=== PATIENT | female | born 1935 | race Caucasian/White ===

== ENCOUNTER 2020-11-23 15:52 | Emergency (ER) | payer MEDICARE ==
[~2020-11-23] VITALS: Ht 160 cm; Wt 96.2 kg
[~2020-11-23 15:52] MED LIST: ACET500 PO; ALEN70 PO; ATOR20 PO; CIPR500 PO; DULO30 PO; DULO60; DULO60 PO; EZET10; EZET10 PO; HYDACE5 PO; HYDACE7.5; HYDCHL25; LANS30EC; LANS30EC PO; LEVSOD25; LEVSOD50 PO; METR500 PO; Motion Sickness25 M1 PO; OMEP20ER PO; PROM25 PO; QUIN10; QUIN10 PO; ROSU10TA; ROSU10TA PO; WARF2.5 PO; Zofran Odt4 MG PO
[2020-11-23 16:48] LABS: BASOPHILS ABSOLUTE AUTO 0.04 K/mm3 (0.00-0.23); BASOPHILS PERCENT AUTO 1 % (0-2); EOSINOPHILS PERCENT AUTO 3 % (0-6); Hematocrit 46.5 % (33.0-51.0); Hemoglobin 14.5 g/dL (11.5-16.0); IMMATURE GRAN ABSOLUTE AUTO 0.03 K/mm3 (0.00-0.10); IMMATURE GRAN PERCENT AUTO 0 % (0-1); LYMPHOCYTES ABSOLUTE AUTO 1.83 K/mm3 (0.84-5.20); LYMPHOCYTES PERCENT AUTO 23 % (21-46); MONOCYTES ABSOLUTE AUTO 0.53 K/mm3 (0.16-1.47); MONOCYTES PERCENT AUTO 7 % (4-13); Mean Corpuscular HGB 28.9 pg (26.0-34.0); Mean Corpuscular HGB Conc 31.2 g/dL (31.5-36.5); Mean Corpuscular Volume 93 fL (80-100); Mean Platelet Volume 9.9 fL (9.1-12.4); NEUTROPHILS ABSOLUTE AUTO 5.21 K/mm3 (1.96-9.15); NEUTROPHILS PERCENT AUTO 66 % (41-73); NRBC ABSOLUTE 0.04 K/mm3 (0.00-0.02); NRBC Auto 0.5 /100 WBC (0.0-0.2); Platelet Count 235 K/mm3 (150-400); RDW Coefficient Variation 13.3 % (11.7-14.2); RDW Standard Deviation 45.2 fL (35.1-46.3); Red Blood Cell Count 5.02 M/mm3 (3.80-5.20); White Blood Cell Count 7.84 K/mm3 (4.00-11.30)
[2020-11-23 17:08] LABS: Alanine Aminotransfer (ALT/SGP 23 U/L (12-78); Albumin, Blood 3.5 g/dL (3.4-5.0); Alk Phos 125 U/L (50-136); Anion Gap 5 mmol/L (6-16); Aspartate Aminotrans (AST/SGOT 21 U/L (12-37); Bilirubin, Total 0.7 mg/dL (0.1-1.0); Blood Urea Nitrogen 15 mg/dL (8-24); Bun/Creatinine Ratio 16.9 (12.0-20.0); CO2, Blood 29 mmol/L (21-32); Calcium, Blood 9.2 mg/dL (8.5-10.1); Chloride, Blood 105 mmol/L (98-108); Creatinine, Blood 0.89 mg/dL (0.40-1.00); Globulin, Blood 3.5 g/dL (2.2-4.0); Glomerular Filtration Rate >60 (60-); Glucose, Blood 120 mg/dL (70-99); Potassium, Blood 4.2 mmol/L (3.5-5.5); Sodium, Blood 139 mmol/L (136-145)
[2020-11-23] MEDS ORDERED: ATOR40TA PO (18:19)
[2020-11-23] MEDS ORDERED: Inderal60 MG PO (18:20)
[2020-11-23] MEDS ORDERED: ASPI81CH PO (18:20)
[2020-11-23 19:39] LABS: Magnesium, Blood 2.3 mg/dL (1.6-2.4); Troponin I <0.015 ng/mL (0.000-0.040)
[2020-11-23 19:47] LABS: Source, Urine Clean Catch
[2020-11-23 19:55] LABS: Appearance, Urine Hazy (Clear); Bilirubin, Urine Neg (Neg); Blood, Urine 1+ (Neg); Color, Urine Yellow (P-Yellow); Glucose Qualitative, Urine Neg (Neg); Ketones, Urine Neg (Neg); Leukocyte Esterase, Urine Neg (Neg); Nitrite, Urine Neg (Neg); Protein, Urine Neg (Neg); Specific Gravity, Urine 1.015 (1.003-1.022); Urobilinogen, Urine NORM (Normal)
[2020-11-23 20:10] LABS: Bacteria Many /hpf; Red Blood Cells, Urine 0-2 /hpf (0-2); Squamous Epithelial Cells Mod /hpf (Few); White Blood Cells, Urine 0-2 /hpf (0-5)
[2020-11-24] MEDS ORDERED: PROM25 PO (00:17)
== END 2020-11-24 00:46 | disposition home or self-care (01) ==
LOC: ER 15:52
PROVIDERS: Emergency Medicine; Physician Assistant
DX: K42.9 Umbilical hernia without obstruction or gangrene (principal); E11.9 Type 2 diabetes mellitus without complications; E03.9 Hypothyroidism, unspecified; Z79.82 Long term (current) use of aspirin; Z79.899 Other long term (current) drug therapy; Z87.891 Personal history of nicotine dependence
CPT/HCPCS: 74018; 74177; 80053; 81001; 83690; 83735; 84484; 85025; 87086; 99284-25; Q9967

== ENCOUNTER → 2020-12-02 | Outpatient (CLI) | payer MEDICARE ==
[~2020-12-02] MED LIST changes: +ASPI81CH PO; +ATOR40TA PO; +Inderal60 MG PO
[2020-12-02 15:13] LABS: Bacteria Mod /hpf; Red Blood Cells, Urine 0-2 /hpf (0-2); Squamous Epithelial Cells Mod /hpf (Few)
== END | disposition home or self-care (01) ==
LOC: LAB EV 14:57 → LAB SHORT 14:57
PROVIDERS: Physician Assistant
DX: R31.9 Hematuria, unspecified (principal)
CPT/HCPCS: 81015

== ENCOUNTER → 2022-01-30 | Outpatient (CLI) | payer MEDICARE ==
[2022-01-30 17:49] LABS: Microalb/Creat Ratio UR, Rand 8.654 mg/g (0.000-30.000); Microalbumin, Random Urine 9.26 mg/L (0.000-20.000)
== END | disposition home or self-care (01) ==
LOC: LAB 15:14 → LAB SHORT 15:14
PROVIDERS: Physician Assistant
DX: N18.9 Chronic kidney disease, unspecified (principal)
CPT/HCPCS: 82043; 82570

== ENCOUNTER → 2022-08-21 | Outpatient (CLI) | payer MEDICARE ==
[2022-08-21 13:47] LABS: Source, Urine Voided
[2022-08-21 15:43] LABS: Appearance, Urine Turbid (Clear); Bilirubin, Urine Neg (Neg); Blood, Urine Neg (Neg); Color, Urine Yellow (P-Yellow); Glucose Qualitative, Urine Neg (Neg); Ketones, Urine Neg (Neg); Leukocyte Esterase, Urine Neg (Neg); Nitrite, Urine Neg (Neg); Protein, Urine Neg (Neg); Specific Gravity, Urine 1.025 (1.003-1.022); Urobilinogen, Urine NORM (Normal)
[2022-08-21 16:00] LABS: Amorphous Heavy (0-Heavy); Bacteria Few /hpf; Red Blood Cells, Urine 0-2 /hpf (0-2); Squamous Epithelial Cells Few /hpf (Few); White Blood Cells, Urine 0-2 /hpf (0-5)
== END | disposition home or self-care (01) ==
LOC: LAB 13:00 → LAB SHORT 13:00
PROVIDERS: Physician Assistant
DX: R44.3 Hallucinations, unspecified (principal)
CPT/HCPCS: 81001

== ENCOUNTER → 2022-08-27 | Outpatient (CLI) | payer MEDICARE ==
[2022-08-28 15:29] LABS: Source, Urine Voided
[2022-08-28 17:40] LABS: Appearance, Urine Clear (Clear); Bilirubin, Urine Neg (Neg); Blood, Urine Neg (Neg); Color, Urine Yellow (P-Yellow); Glucose Qualitative, Urine Neg (Neg); Ketones, Urine Neg (Neg); Leukocyte Esterase, Urine Neg (Neg); Nitrite, Urine Neg (Neg); Protein, Urine Neg (Neg); Specific Gravity, Urine 1.015 (1.003-1.022); Urobilinogen, Urine NORM (Normal); pH, Urine 6.5 (5.0-8.0)
== END ==
LOC: LAB SHORT 10:45
PROVIDERS: Physician Assistant
DX: R44.3 Hallucinations, unspecified (principal)
CPT/HCPCS: 81003

== ENCOUNTER 2022-11-23 10:02 | Inpatient (IN) | payer MEDICARE ==
[~2022-11-23] VITALS: Ht 160 cm; Wt 87.7 kg
[~2022-11-23 10:02] MED LIST changes: +LISI20 PO; +METO50 PO; +MIRT15 PO; +Prinivil10 MG PO
[2022-11-23] MEDS ORDERED: METO25ER PO (10:46)
[2022-11-23 11:00] LABS: BASOPHILS ABSOLUTE AUTO 0.05 K/mm3 (0.00-0.23); BASOPHILS PERCENT AUTO 1 % (0-2); EOSINOPHILS ABSOLUTE AUTO 0.19 K/mm3 (0.00-0.68); EOSINOPHILS PERCENT AUTO 2 % (0-6); Hematocrit 44.1 % (33.0-51.0); Hemoglobin 14.2 g/dL (11.5-16.0); IMMATURE GRAN ABSOLUTE AUTO 0.06 K/mm3 (0.00-0.10); IMMATURE GRAN PERCENT AUTO 1 % (0-1); LYMPHOCYTES ABSOLUTE AUTO 2.04 K/mm3 (0.84-5.20); LYMPHOCYTES PERCENT AUTO 22 % (21-46); MONOCYTES ABSOLUTE AUTO 0.61 K/mm3 (0.16-1.47); MONOCYTES PERCENT AUTO 7 % (4-13); Mean Corpuscular HGB 29.8 pg (26.0-34.0); Mean Corpuscular HGB Conc 32.2 g/dL (31.5-36.5); Mean Corpuscular Volume 93 fL (80-100); Mean Platelet Volume 9.7 fL (9.1-12.4); NEUTROPHILS ABSOLUTE AUTO 6.22 K/mm3 (1.96-9.15); NEUTROPHILS PERCENT AUTO 68 % (41-73); Platelet Count 281 K/mm3 (150-400); RDW Coefficient Variation 14.4 % (11.7-14.2); RDW Standard Deviation 49.3 fL (35.1-46.3); Red Blood Cell Count 4.76 M/mm3 (3.80-5.20); White Blood Cell Count 9.17 K/mm3 (4.00-11.30)
[2022-11-23 11:19] LABS: Albumin, Blood 3.3 g/dL (3.4-5.0); Bilirubin, Total 0.9 mg/dL (0.1-1.0); Bun/Creatinine Ratio 22.9 (12.0-20.0); Calcium, Blood 9.2 mg/dL (8.5-10.1); Creatinine, Blood 0.96 mg/dL (0.40-1.00); Globulin, Blood 3.4 g/dL (2.2-4.0); Magnesium, Blood 2.2 mg/dL (1.6-2.4); Potassium, Blood 4.5 mmol/L (3.5-5.5); Total Protein, Blood 6.7 g/dL (6.4-8.2)
[2022-11-23] MEDS ORDERED: EUTHYROX50 MC1 PO (13:28)
[2022-11-23] MEDS ORDERED: DULO60 PO (13:57)
[2022-11-23 15:28] VITALS: BP 154/89
[2022-11-23 20:57] VITALS: BP 100/65
[2022-11-23 22:00] VITALS: BP 108/62
[2022-11-23 23:00] VITALS: BP 121/63
[2022-11-24] VITALS (15 sets, daily range): BP systolic 104–140; BP diastolic 59–121
[2022-11-24 04:04] LABS: BASOPHILS ABSOLUTE AUTO 0.05 K/mm3 (0.00-0.23); BASOPHILS PERCENT AUTO 1 % (0-2); EOSINOPHILS ABSOLUTE AUTO 0.22 K/mm3 (0.00-0.68); EOSINOPHILS PERCENT AUTO 3 % (0-6); Hematocrit 42.7 % (33.0-51.0); Hemoglobin 13.9 g/dL (11.5-16.0); IMMATURE GRAN ABSOLUTE AUTO 0.04 K/mm3 (0.00-0.10); IMMATURE GRAN PERCENT AUTO 1 % (0-1); LYMPHOCYTES ABSOLUTE AUTO 2.25 K/mm3 (0.84-5.20); LYMPHOCYTES PERCENT AUTO 30 % (21-46); MONOCYTES ABSOLUTE AUTO 0.52 K/mm3 (0.16-1.47); MONOCYTES PERCENT AUTO 7 % (4-13); Mean Corpuscular HGB 29.8 pg (26.0-34.0); Mean Corpuscular HGB Conc 32.6 g/dL (31.5-36.5); Mean Corpuscular Volume 91 fL (80-100); Mean Platelet Volume 9.7 fL (9.1-12.4); NEUTROPHILS ABSOLUTE AUTO 4.42 K/mm3 (1.96-9.15); NEUTROPHILS PERCENT AUTO 59 % (41-73); Platelet Count 266 K/mm3 (150-400); RDW Coefficient Variation 14.1 % (11.7-14.2); RDW Standard Deviation 46.9 fL (35.1-46.3); Red Blood Cell Count 4.67 M/mm3 (3.80-5.20)
[2022-11-24 04:20] LABS: Albumin/Globulin Ratio 0.9 (0.8-1.8); Bilirubin, Total 0.8 mg/dL (0.1-1.0); Bun/Creatinine Ratio 24.1 (12.0-20.0); Calcium, Blood 8.6 mg/dL (8.5-10.1); Creatinine, Blood 0.95 mg/dL (0.40-1.00); Globulin, Blood 3.2 g/dL (2.2-4.0); Magnesium, Blood 2.2 mg/dL (1.6-2.4); Potassium, Blood 4.3 mmol/L (3.5-5.5); Total Protein, Blood 6.2 g/dL (6.4-8.2)
--- NOTE | 2022-11-24 06:11 | NUR ---
BOXING AND PRESSING SUPERVISOR SUMMARY ASSUMED CARE OF THE PT AT 1900. SHE IS ALERT AND ORIENTED X4, COOPERATIVE. PT FOLLOWS DIRECTIONS. PT HAS BEEN HAVING PAUSES RECENTLY THAT SHE IS SYMPTOMATIC FOR. SHE HAD A 7 SECOND PAUSE THIS SHIFT. ZOLL IN THE ROOM AND ATTACHED TO PT. PT HR WAS MAINTAINING IN THE 40S AT THE START OF THE SHIFT BUT HAS IMPROVED TO THE 70S AND 80S. DR FARLEY SAW THE PT THIS SHIFT AND PLAN FOR PACEMAKER THIS AM. PT SLEEPING ON CPAP AND SATTING >92%. PT INCONTINENT AT NIGHT. Q2 TURNS BUT PT REFUSES WHEN SLEEPING.
--- NOTE | 2022-11-24 06:40 | NUR ---
SPOKE WITH PT'S DAUGHTER THIS AM TO INFORM HER OF THE PT'S PLAN FOR PACEMAKER.
--- NOTE | 2022-11-24 08:59 | NUR ---
ASSUMED CARE OF PT AT 0715 BEDSIDE REPORT RECEIVED FROM RAE CALIX. PT IS AWAKE, A/O. HAS SLEPT WELL, RECEIVED CHLORHEXADINE PREP TO NECK AND CHEST. PLAN IS [facility] THIS AM AT [address] FARLEY. FAMILY TO BEDSIDE THIS AM, PT AND FAMILY UPDATED ON POC AND EXPECTATIONS POST PROCEDURE. ALL QUESTIONS ANSWERED. PIV X1 SL, FLUSHES WELL. HAS ATB ORDERED OC TO OR, PER DOUGHNUT ICER MACHINE, THEY WILL ADMINISTER IN PREOP. RN TO CONTINUE TO MONITOR.
--- NOTE | 2022-11-24 09:07 | NUR ---
PT TO OR AT 08 FOR PLANNED PACEMAKER PLACEMENT
--- NOTE | 2022-11-24 17:33 | NUR ---
RETURNED FROM PUMP HOUSE TECHNICIAN AT 1130 TOLERATED PACER PLACEMENT WELL. DENIES PAIN. SLING PLACED TO LEFT ARM. EDUCATION DONE WITH PT AND FAMILY ON RESTRICTIONS WITH LEFT ARM MOVEMENT. PT OOB TO CHAIR. HR 90'S AFIB UPON ARRIVAL FROM PROCEDURE, TRANSITIONED TO 100% V PACED. BP STABLE. ON ROOM AIR. TYLENOL GIVEN FOR PAIN IN THE [place] AREA DUE TO A FALL. BRUISING PRESENT BUT NO SKIN BREAKDOWN NOTED. PT ASSISTED WITH TURNS/WEIGHT SHIFT WHILE IN BED, HELPED OOB TO CHAIR, TOLERATED WELL. FAMILY AT BEDSIDE THROUGHOUT THE DAY. ALL UPDATED ON CURRENT STATUS AND POC. RN TO CONTINUE TO MONITOR
[2022-11-25 04:03] LABS: Bun/Creatinine Ratio 27.8 (12.0-20.0); Calcium, Blood 8.6 mg/dL (8.5-10.1); Creatinine, Blood 0.94 mg/dL (0.40-1.00); Potassium, Blood 4.3 mmol/L (3.5-5.5)
--- NOTE | 2022-11-25 07:21 | NUR ---
BUSINESS OFFICE ASSISTANT SUMMARY ASSUMED CARE OF THE PT AT 1900. SHE IS ALERT AND ORIENTED X4, COOPERATIVE. PT TOOK HER MEDICATIONS AND SLEPT THROUGHOUT THE SHIFT. SHE WAS GIVEN 1 NORCO FOR HIP PAIN WITH IMPROVEMENT. VSS. PT WAS PACED AT THE START OF THE SHIFT BUT WAS NOT PACED LATER DUE TO RATE REMAINING IN THE 70S WITHOUT PAUSES. PT SLEPT ON CPAP. BP STABLE. PACEMAKER SITE C/D/I. LEFT ARM IN SLING.
[2022-11-25 07:53] VITALS: BP 147/94
--- NOTE | 2022-11-25 08:24 | NUR ---
pt update pt up in chair at start of shift, a&o, vss. pacer site c/d/i, no bruising, skin blanched around site. arm sling in place. pt denies pain. Daughter in room. Pt currently down in imaging for chest xray, 2 person assist w/ gb and fww from chair to imaging cart d/t weakness.
[2022-11-25 11:36] VITALS: BP 147/83
--- NOTE | 2022-11-25 12:45 | NUR ---
DISCHARGE PT A&OX4, VSS. DISCHARGE ORDERS REVIEWED W/ PT AND PT'S DAUGHTER. POST PACER CARE REVIEWED WELL. BOTH VERBALIZE UNDERSTANDING. PT TO SCHEDULE FOLLOWUP APPTS AFTER HOLIDAY WEEKEND. MEDICATION FAXED TO [facility]. PT IV'S REMOVED. DRESSED IN HOME CLOTHES AND WHEELED TO DAUGHTERS VEHICLE.
== END 2022-11-25 13:00 | disposition home or self-care (01) | DRG 244 ==
LOC: ER 10:02 → PCU 12:45
PROVIDERS: Internal Medicine Cardiovascular Disease; Student in an Organized Health Care Education/Training Program; ADMIT Internal Medicine
PROC: 4A023FZ Measurement of Cardiac Rhythm, Percutaneous Approach (ICD-10-PCS; principal; 2022-11-24)
PROC: 0JH606Z Insertion of Pacemaker, Dual Chamber into Chest Subcutaneous Tissue and Fascia, Open Approach (ICD-10-PCS; 2022-11-24)
PROC: 02H63JZ Insertion of Pacemaker Lead into Right Atrium, Percutaneous Approach (ICD-10-PCS; 2022-11-24)
PROC: 4A0234Z Measurement of Cardiac Electrical Activity, Percutaneous Approach (ICD-10-PCS; 2022-11-24)
PROC: 02HK3JZ Insertion of Pacemaker Lead into Right Ventricle, Percutaneous Approach (ICD-10-PCS; 2022-11-24)
DX: I44.2 Atrioventricular block, complete (principal); I48.92 Unspecified atrial flutter; I48.91 Unspecified atrial fibrillation; R55 Syncope and collapse; E03.9 Hypothyroidism, unspecified; G20 Parkinson's disease; E78.5 Hyperlipidemia, unspecified; G47.33 Obstructive sleep apnea (adult) (pediatric); F41.9 Anxiety disorder, unspecified; E11.22 Type 2 diabetes mellitus with diabetic chronic kidney disease; I71.21 Aneurysm of the ascending aorta, without rupture; I12.9 Hypertensive chronic kidney disease with stage 1 through stage 4 chronic kidney disease, or unspecified chronic kidney disease; F32.A Depression, unspecified; N18.31 Chronic kidney disease, stage 3a; I35.1 Nonrheumatic aortic (valve) insufficiency; Z90.89 Acquired absence of other organs; Z90.710 Acquired absence of both cervix and uterus; Z99.89 Dependence on other enabling machines and devices; Z98.890 Other specified postprocedural states; Z95.0 Presence of cardiac pacemaker; Z87.891 Personal history of nicotine dependence; Z79.890 Hormone replacement therapy; Z90.49 Acquired absence of other specified parts of digestive tract; Z79.899 Other long term (current) drug therapy
CPT/HCPCS: 33208; 36415; 71045; 71046; 80048; 80053; 83735; 84484; 85025; 93005; 93010; 94660; 94762; 99152; 99153; 99285-25; A9270; C1781; C1785; C1894; C1898; J0690; J1644; J2250; J3010; J7040; Q9967

== ENCOUNTER 2023-07-16 15:34 | Emergency (ER) | payer MEDICARE ==
[~2023-07-16] VITALS: Ht 162.6 cm; Wt 83.9 kg
[~2023-07-16 15:34] MED LIST changes: +EUTHYROX50 MC1 PO; +METO25ER PO
[2023-07-16 17:44] LABS: White Blood Cell Count 11.47 K/mm3 (4.00-11.30)
[2023-07-16 17:45] LABS: BASOPHILS ABSOLUTE AUTO 0.05 K/mm3 (0.00-0.23); BASOPHILS PERCENT AUTO 0 % (0-2); EOSINOPHILS ABSOLUTE AUTO 0.11 K/mm3 (0.00-0.68); EOSINOPHILS PERCENT AUTO 1 % (0-6); Hematocrit 48.6 % (33.0-51.0); Hemoglobin 15.6 g/dL (11.5-16.0); IMMATURE GRAN ABSOLUTE AUTO 0.04 K/mm3 (0.00-0.10); IMMATURE GRAN PERCENT AUTO 0 % (0-1); LYMPHOCYTES ABSOLUTE AUTO 2.47 K/mm3 (0.84-5.20); LYMPHOCYTES PERCENT AUTO 22 % (21-46); MONOCYTES ABSOLUTE AUTO 0.76 K/mm3 (0.16-1.47); MONOCYTES PERCENT AUTO 7 % (4-13); Mean Corpuscular HGB 29.5 pg (26.0-34.0); Mean Corpuscular HGB Conc 32.1 g/dL (31.5-36.5); Mean Corpuscular Volume 92 fL (80-100); Mean Platelet Volume 9.5 fL (9.1-12.4); NEUTROPHILS ABSOLUTE AUTO 8.04 K/mm3 (1.96-9.15); NEUTROPHILS PERCENT AUTO 70 % (41-73); Platelet Count 241 K/mm3 (150-400); RDW Coefficient Variation 14.6 % (11.7-14.2); Red Blood Cell Count 5.28 M/mm3 (3.80-5.20)
[2023-07-16 18:15] LABS: Albumin, Blood 3.6 g/dL (3.4-5.0); Bilirubin, Total 0.7 mg/dL (0.1-1.0); Bun/Creatinine Ratio 15.9 (12.0-20.0); Calcium, Blood 9.5 mg/dL (8.5-10.1); Creatinine, Blood 0.94 mg/dL (0.40-1.00); Globulin, Blood 3.7 g/dL (2.2-4.0); Total Protein, Blood 7.3 g/dL (6.4-8.2)
[2023-07-16 19:29] VITALS: BP 122/86
[2023-07-16] MEDS ORDERED: Cipro500 MG PO (20:41)
[2023-07-16] MEDS ORDERED: Flagyl500 MG PO (20:41)
== END 2023-07-16 21:00 | disposition home or self-care (01) ==
LOC: ER 15:34
PROVIDERS: Physician Assistant
DX: K57.32 Diverticulitis of large intestine without perforation or abscess without bleeding (principal); E11.9 Type 2 diabetes mellitus without complications; E03.9 Hypothyroidism, unspecified; G20.A1 Parkinson's disease without dyskinesia, without mention of fluctuations; Z79.899 Other long term (current) drug therapy; Z79.890 Hormone replacement therapy; Z87.891 Personal history of nicotine dependence
CPT/HCPCS: 74177; 80053; 83690; 85025; 99284-25; A9270; Q9967

== ENCOUNTER 2023-08-03 13:46 | Emergency (ER) | payer MEDICARE ==
[~2023-08-03] VITALS: Ht 175.3 cm; Wt 95.2 kg
[~2023-08-03 13:46] MED LIST changes: +Cipro500 MG PO; +Flagyl500 MG PO
[2023-08-03 15:13] LABS: Source, Urine Fem Cath
[2023-08-03 15:18] LABS: Appearance, Urine Clear (Clear); BASOPHILS ABSOLUTE AUTO 0.04 K/mm3 (0.00-0.23); BASOPHILS PERCENT AUTO 1 % (0-2); Bilirubin, Urine Neg (Neg); Blood, Urine Neg (Neg); Color, Urine Yellow (P-Yellow); EOSINOPHILS ABSOLUTE AUTO 0.14 K/mm3 (0.00-0.68); EOSINOPHILS PERCENT AUTO 2 % (0-6); Glucose Qualitative, Urine Neg (Neg); Hematocrit 50.1 % (33.0-51.0); Hemoglobin 16.6 g/dL (11.5-16.0); IMMATURE GRAN ABSOLUTE AUTO 0.02 K/mm3 (0.00-0.10); IMMATURE GRAN PERCENT AUTO 0 % (0-1); Ketones, Urine 1+ (Neg); LYMPHOCYTES ABSOLUTE AUTO 2.11 K/mm3 (0.84-5.20); LYMPHOCYTES PERCENT AUTO 31 % (21-46); Leukocyte Esterase, Urine Neg (Neg); MONOCYTES ABSOLUTE AUTO 0.49 K/mm3 (0.16-1.47); MONOCYTES PERCENT AUTO 7 % (4-13); Mean Corpuscular HGB 30.2 pg (26.0-34.0); Mean Corpuscular HGB Conc 33.1 g/dL (31.5-36.5); Mean Corpuscular Volume 91 fL (80-100); Mean Platelet Volume 9.9 fL (9.1-12.4); NEUTROPHILS ABSOLUTE AUTO 4.04 K/mm3 (1.96-9.15); NEUTROPHILS PERCENT AUTO 59 % (41-73); Nitrite, Urine Neg (Neg); Platelet Count 270 K/mm3 (150-400); Protein, Urine Neg (Neg); RDW Coefficient Variation 14.3 % (11.7-14.2); RDW Standard Deviation 48.4 fL (35.1-46.3); Specific Gravity, Urine 1.025 (1.003-1.022); Urobilinogen, Urine NORM (Normal); White Blood Cell Count 6.84 K/mm3 (4.00-11.30)
[2023-08-03 15:44] LABS: Albumin, Blood 3.5 g/dL (3.4-5.0); Albumin/Globulin Ratio 0.9 (0.8-1.8); Bilirubin, Total 0.9 mg/dL (0.1-1.0); Bun/Creatinine Ratio 22.4 (12.0-20.0); Creatinine, Blood 0.98 mg/dL (0.40-1.00); Potassium, Blood 4.8 mmol/L (3.5-5.5); Total Protein, Blood 7.5 g/dL (6.4-8.2)
[2023-08-03 16:00] VITALS: BP 165/109
== END 2023-08-03 17:22 | disposition home or self-care (01) ==
LOC: ER 13:46
PROVIDERS: Emergency Medicine
DX: K57.30 Diverticulosis of large intestine without perforation or abscess without bleeding (principal); G20.A1 Parkinson's disease without dyskinesia, without mention of fluctuations; F41.9 Anxiety disorder, unspecified; F12.90 Cannabis use, unspecified, uncomplicated; E11.9 Type 2 diabetes mellitus without complications; E03.9 Hypothyroidism, unspecified; Z79.890 Hormone replacement therapy; Z79.899 Other long term (current) drug therapy
CPT/HCPCS: 74176; 80053; 81003; 83690; 85025; 93005; 93010; 99284-25